=== PATIENT | male | born 1990 | race Two or more races ===

== ENCOUNTER 2024-09-12 18:08 | Emergency (ER) | payer OTHER ==
[~2024-09-12] VITALS: Ht 180.3 cm; Wt 81.0 kg
[2024-09-12 20:09] VITALS: BP 154/86; TEMP 98.3
[2024-09-12 20:10] VITALS: PULSE 100; RESP 20; O2SAT 97
--- NOTE | 2024-09-12 20:17 | ED.PDOC ---
Psychiatric HPI Comments This is a 34-year-old male presents to the ED chief complaint medication refill. Patient states he needs a refill of his Xanax 0.25 mg 1 tab once daily. Patient reports has been without medication x1 week, however his last dose was last night he stated he received 1 pill from 1 of his friends. Patient also reports has a follow up in September for refill. Currently denies any symptoms or withdrawal symptoms at the moment. Denies nausea, vomiting, abdominal pain, diarrhea, chest pain, shortness of breath, difficulty breathing. Chief Complaint: Anxiety Time Seen by MD: 18:41 Reviewed Notes: Nurses Notes, Medications, Allergies Information Source: Patient Mode of Arrival: Ambulatory Past Medical History PAST MEDICAL HISTORY: Anxiety, Denies Surgical History: Denies all surgeries Family History Family History: Reviewed,noncontributory to illness Social History Smoker: Non-Smoker Alcohol: Denies ETOH Use Drugs: Denies Drug Use Constitutional: denies: chills, diaphoresis, fatigue, fever, malaise, sweats, weakness, others EENTM: denies: blurred vision, double vision, ear bleeding, ear discharge, ear drainage, ear pain, ear ringing, eye pain, eye redness, hearing loss, mouth pain, mouth swelling, nasal discharge, nose bleeding, nose congestion, nose pain, photophobia, tearing, throat pain, throat swelling, voice changes, others Respiratory: denies: cough, hemoptysis, orthopnea, SOB at rest, shortness of breath, SOB with excertion, stridor, wheezing, others Cardiovascular: denies: chest pain, dizzy spells, diaphoresis, Dyspnea on exertion, edema, irregular heart beat, left arm pain, lightheadedness, pa lpitations, PND, syncope, others Gastrointestinal: denies: abdomen distended, abdominal pain, blood streaked bowels, constipated, diarrhea, dysphagia, difficulty swallowing, hematemesis, melena, nausea, poor appetite, poor fluid intake, rectal bleeding, rectal pain, vomiting, others Genitourinary: denies: burning, dysuria, flank pain, frequency, hematuria, incontinence, penile discharge, penile sore, pain, testicle pain, testicle swelling, urgency, others Neurological: denies: dizziness, fainting, headache, left sided numbness, left sided weakness, numbness, paresthesia, pre-existing deficit, right sided numbness, right sided weakness, seizure, speech problems, tingling, tremors, weakness, others Musculoskeletal: denies: back pain, gout, joint pain, joint swelling, muscle pain, muscle stiffness, neck pain, others Integumetry: denies: bruises, change in color, change in hair/nails, dryness, laceration, lesions, lumps, rash, wounds, others Allergic/Immunocompromised: denies: Difficulty Healing, Frequent Infections, Hives, Itching, others Hematologic/Lymphatic: denies: anemia, blood clots, easy bleeding, easy br uising, swollen glands, others Psychiatric: reports: anxiety Physical Exam General Appearance: No Apparent Distress, Normal HEENT: Normal ENT Inspection, Pharynx Normal, TMs Normal Neck: Full Range of Motion, Non-Tender Respiratory: Lungs Clear, No Respiratory Distress, Normal Breath Sounds Cardiovascular: No Edema, No JVD, No Murmur, No Gallop, Normal Peripheral Pulses, Regular Rate/Rhythm Breast Exam: Deferred Gastrointestinal: No Organomegaly, Non Tender, No Pulsatile Mass, Normal Bowel Sounds, Soft Genitalia: Deferred Pelvic: Deferred Rectal: Deferred Extremities: Normal capillary refill, Normal inspection, Normal range of motion, Non-tender, No pedal edema Musculoskeletal : Apperance: Normal Neurologic: Alert, 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 Was a procedure done?: No Psych Differential Dx Psych. Differential Dx: Anxiety X-Ray, Labs, Meds, VS Vital Signs Date Time Temp Pulse Resp B/P (MAP) Pulse Ox O2 Delivery O2 Flow Rate FiO2 09/12/24 20:10 100 20 97 Room Air* 0 21 09/12/24 20:09 98.3 100 18 154/86 (108) 97 98.3 09/12/24 18:22 98.4 109 18 160/90 (113) 98 X-Ray, Labs, Meds, VS Comment And given 0.25 mg of his daily dose today. Advised to call his psychiatrist in requested bridge until his appointment in September. Patient states has been without his medication for 1 week, however he also reports he was given a Xanax yesterday by his friend. Patient is awake alert oriented vital signs are stable no signs of withdrawal symptoms at this time. Advised to follow up with his PCP in 2-3 days as necessary. Return precautions given patient indicated understanding agrees with discharge plan of care. Time of 1ST Reevaluation: 20:22 Reevaluation 1ST: Improved Patient Education/Counseling: Diagnosis, Treatment, Prognosis, Need For Follow Up Family Education/Counseling: Diagnosis, Treatment, Prognosis, Need For Follow Up Departure 1 Departure Time of Disposition: 20:22 Impression: Primary Impression: Generalized anxiety disorder with panic attacks Disposition: 01 HOME / SELF CARE / HOMELESS Condition: Stable Discharged With: Relative (Mother) Critical Care Note Critical Care Time?: No Stability Stability form required: CHRISTINE Garcia Sep 12, 2024 20:17
[2024-09-12] MEDS: ALPRAZolam 0.25 MG TAB PO ONE (20:52)
== END 2024-09-12 21:10 | disposition home or self-care (01) ==
LOC: ER 18:08
DX: F41.0 Panic disorder [episodic paroxysmal anxiety] (principal); F41.1 Generalized anxiety disorder; Z76.0 Encounter for issue of repeat prescription